=== PATIENT | male | born 1970 | race Two or more races ===

== ENCOUNTER 2025-09-03 16:02 | Emergency (ER) | payer BC, SELFPAY ==
[2025-09-03 16:03] VITALS: BMI 31.6
[2025-09-03 16:56] VITALS: BP 149/91; PULSE 60; RESP 18; TEMP 36.8; O2SAT 96
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
== END 2025-09-03 17:57 | disposition home or self-care (01) ==
LOC: SERX 17:27
PROVIDERS: Emergency Provider Physician Assistant
DX: S50.811A Abrasion of right forearm, initial encounter (principal); W64.XXXA Exposure to other animate mechanical forces, initial encounter
CPT/HCPCS: 99281